=== PATIENT | male | born 1980 | race Caucasian/White ===

== ENCOUNTER 2018-01-05 18:21 | Emergency (ER) | payer BC, OTHER ==
[~2018-01-05] VITALS: Ht 185.4 cm; Wt 105.2 kg
[2018-01-05] MEDS ORDERED: ASPIRIN 81 MG TAB.CHEW PO ONE (19:15)
[2018-01-05] MEDS ORDERED: IV NORMAL SALINE 1,000ML 1,000 ML IV ONE (19:15)
--- NOTE | 2018-01-05 19:47 | PHYS DOC ---
Past History Past Medical History: No Pertinent History Past Surgical History: No Surgical History Alcohol Use: None Drug Use: None Adult General Chief Complaint Chief Complaint: CHEST PAIN HPI HPI Mr. Hallman is a 37 yo male who presents to the Emergency Department after having visited his local PCP. Over the weekend he said that he was experiencing some light headedness and was not feeling well. He said that nothing improves/ worsens his symptoms. His then scheduled an appointment at his PCP which they went to today. He was then referred to the ED by the nurse practitioner who saw him at the office for what he describes as his high blood pressure, "irregular ECG and an enlarged heart on chest xray". Upon talking to Mr. Hallman, he said that he is feeling better now than he was over the weekend. For the past 3 days he has been taking his 's lisinopril medication (2 tablets for 40mg total). He says that he will get occasional dizziness when standing up after laying down. He said that he has been on a keto diet for the past month and mentioned that that could possibly have caused him to not get enough fluids/electrolytes in his diet. He also mentioned that he has been without insurance for the past 3 years and was unable to get any medications. Review of Systems Review of Systems Constitutional: Denies fever or chills [] Eyes: Denies change in visual acuity, redness, or eye pain [] HENT: Denies nasal congestion or sore throat [] Respiratory: Endorses cough and occasional shortness of breath [] Cardiovascular: Denies chest pain and palpitations [] GI: Denies abdominal pain, nausea, vomiting, bloody stools or diarrhea [] : Denies dysuria or hematuria [] Musculoskeletal: Denies back pain or joint pain [] Integument: Denies rash or skin lesions [] Neurologic: Complains of occasional dizziness. Denies headache, focal weakness or sensory changes [] Complete systems were reviewed and found to be within normal limits, except as documented in this note. Current Medications Current Medications Current Medications Medications (Trade) Dose Ordered Sig/Thang Start Time Stop Time Status Last Admin Dose Admin Aspirin (Children'S Aspirin) 324 mg 1X ONCE 01/05/18 19:15 01/05/18 19:16 DC Sodium Chloride 1,000 ml @ 1,000 mls/hr 1X ONCE 01/05/18 19:15 01/05/18 20:14 Allergies Allergies Allergies Coded Allergies Type Severity Reaction Last Updated Verified No Known Drug Allergies 01/05/18 No Physical Exam Physical Exam Constitutional: Well developed, well nourished, no acute distress, non-toxic appearance. [] HENT: Normocephalic, atraumatic, oropharynx moist, no oral exudates, nose normal. [] Eyes: PERRL, EOMI. [] Neck: Normal range of motion, no tenderness, supple, no stridor. [] Cardiovascular:Heart rate regular rhythm, no murmur [] Lungs & Thorax: Bilateral breath sounds clear to auscultation. Chest tender upon palpation [] Abdomen: Bowel sounds normal, soft, no tenderness, no masses, no pulsatile masses. [] Skin: Warm, dry, no erythema, no rash. [] Back: No tenderness, no CVA tenderness. [] Extremities: No tenderness, no cyanosis, no clubbing, ROM intact, no edema. [] Neurologic: Alert and oriented X 3, normal motor function, normal sensory function, no focal deficits noted. [] Psychologic: Affect normal, judgement normal, mood normal. [] Current Patient Data Vital Signs Vital Signs Date Time Temp Pulse Resp B/P (MAP) Pulse Ox O2 Delivery O2 Flow Rate FiO2 01/05/18 18:33 98.4 102 16 98 Room Air EKG EKG 01/05/2018 1830 Sinus tachycardia at 106bpm, nonspecific t wave inversions in V5-V6, NO ST elevation Radiology/Procedures Radiology/Procedures PROCEDURE: CHEST PA & LATERAL PA and lateral chest radiograph. History: Hypertension, chest pain. Comparison: None. Findings: Cardiac silhouette is mildly enlarged. No pneumothorax or pleural effusion is seen. There is slight accentuation of the fissures. Mild density seen involving the right lower lobe. Impression: 1. Mild density involving the right lower lobe, could be atelectasis versus developing airspace disease. 2. Cardiac silhouette is enlarged. There is mild thickening of the fissures; findings might represent mild interstitial edema. Electronically signed by: Michael Jackson MD (01/05/2018 9:06 PM) [facility] Course & Med Decision Making Course & Med Decision Making Pertinent Labs and Imaging studies reviewed. (See chart for details) Mr. Hallman is a 37 yo male who presents to the Emergency Department after having visited his local PCP. Over the weekend he said that he was experiencing some light headedness and was not feeling well. His then scheduled an appointment at his PCP which they went to today. He was then referred to the ED by the nurse practitioner who saw him at the office for what he describes as his high blood pressure, "irregular ECG and an enlarged heart on chest xray". Upon talking to Mr. Hallman, he said that he is feeling better now than he was over the weekend. Chest x-ray and ECG were ordered. ECG showed some sinus tachycardia. Fluids and aspirin were administered to the patient while in the ED. labs obtained and posted to chart. Troponin within normal limits. Creatinine elevated. Creatinine possibly secondary to recent change in diet. Patient advised to increase his fluid consumption. Patient might also have chronic renal insufficiency due to elevated blood pressure. Therefore a rescue blood pressure medication was prescribed. Patient stable for discharge with outpatient follow-up with PCP. Discussed findings and plan with patient and family, who acknowledge understanding and agreement. Dragon Disclaimer Dragon Disclaimer This electronic medical record was generated, in whole or in part, using a voice recognition dictation system. Departure Departure: Impression: Primary Impression: Hypertension Disposition: 01 HOME, SELF-CARE Referrals: FABRIZIO BEAR MD (PCP) Patient Instructions: Hypertension, [id number] Scripts Clonidine Hcl (CLONIDINE HCL) 0.1 Mg Tablet 1 TAB PO BID PRN for SEE COMMENTS, #14 TAB 0 Refills Prov: MICHAEL ALTAMIRANO DO 01/05/18 Problem Qualifiers Primary Impression: Hypertension Hypertension type: unspecified Qualified Codes: I10 - Essential (primary) hypertension MICHAEL ALTAMIRANO DO Jan 05, 2018 19:47
[2018-01-05 20:02] LABS: BASO # 0.2 x10^3/uL (0.0-0.2); BASO % 2 % (0-3); EOS # 0.6 x10^3/uL (0.0-0.7); EOS % 5 % (0-3); HEMATOCRIT 40.4 % (39.0-53.0); HEMOGLOBIN 13.3 g/dL (13.0-17.5); LYMPH % 15 % (24-48); MEAN CORPUSCULAR HEMOGLOBIN 25 pg (25-35); MEAN CORPUSCULAR HGB CONC 33 g/dL (31-37); MEAN CORPUSCULAR VOLUME 76 fL (79-100); MONO # 0.8 x10^3/uL (0.0-1.1); MONO % 6 % (0-9); NEUT # 9.2 x10^3uL (1.8-7.7); NEUT % 72 % (31-73); PLATELET COUNT 270 x10^3/uL (140-400); RED BLOOD COUNT 5.29 x10^6/uL (4.30-5.70); RED CELL DISTRIBUTION WIDTH 15.2 % (11.5-14.5); WHITE BLOOD COUNT 12.9 x10^3/uL (4.0-11.0)
[2018-01-05 20:27] LABS: ALBUMIN 3.3 g/dL (3.4-5.0); CALCIUM 8.7 mg/dL (8.5-10.1); CREATININE 1.5 mg/dL (0.7-1.3); GFR 53.3; MAGNESIUM 1.9 mg/dL (1.8-2.4); POTASSIUM 4.1 mmol/L (3.5-5.1); TOTAL BILIRUBIN 0.7 mg/dL (0.2-1.0); TOTAL PROTEIN 6.7 g/dL (6.4-8.2)
[2018-01-05] MEDS ORDERED: CLON0.1T PO (21:02)
[2018-01-05 21:10] VITALS: BP 152/115
--- NOTE | 2018-01-05 21:10 | RAD ---
PA and lateral chest radiograph. History: Hypertension, chest pain. Comparison: None. Findings: Cardiac silhouette is mildly enlarged. No pneumothorax or pleural effusion is seen. There is slight accentuation of the fissures. Mild density seen involving the right lower lobe. Impression: 1. Mild density involving the right lower lobe, could be atelectasis versus developing airspace disease. 2. Cardiac silhouette is enlarged. There is mild thickening of the fissures; findings might represent mild interstitial edema. Electronically signed by: Michael Jackson MD (01/05/2018 9:06 PM) [facility]
--- NOTE | 2018-01-06 06:27 | EKG ---
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
== END 2018-01-05 21:11 | disposition home or self-care (01) ==
LOC: ER 18:21
DX: I10 Essential (primary) hypertension (principal)
CPT/HCPCS: 36415; 71046; 80053; 82553; 83735; 84484; 85025; 93005; 96360; 99285-25; J7030

== ENCOUNTER 2018-05-12 11:23 | Emergency (ER) | payer BC ==
[~2018-05-12] VITALS: Ht 185.4 cm; Wt 110.7 kg
[~2018-05-12 11:23] MED LIST: CLON0.1T PO
[2018-05-12 11:54] LABS: BASO # 0.1 x10^3/uL (0.0-0.2); BASO % 1 % (0-3); EOS # 0.6 x10^3/uL (0.0-0.7); EOS % 3 % (0-3); HEMATOCRIT 41.1 % (39.0-53.0); LYMPH % 12 % (24-48); MEAN CORPUSCULAR HEMOGLOBIN 28 pg (25-35); MEAN CORPUSCULAR HGB CONC 34 g/dL (31-37); MEAN CORPUSCULAR VOLUME 83 fL (79-100); MONO # 1.6 x10^3/uL (0.0-1.1); MONO % 9 % (0-9); NEUT % 75 % (31-73); PLATELET COUNT 404 x10^3/uL (140-400); RED BLOOD COUNT 4.95 x10^6/uL (4.30-5.70); RED CELL DISTRIBUTION WIDTH 16.3 % (11.5-14.5); WHITE BLOOD COUNT 17.3 x10^3/uL (4.0-11.0)
[2018-05-12 12:15] LABS: ALBUMIN 3.4 g/dL (3.4-5.0); ALBUMIN/GLOBULIN RATIO 0.8 (1.0-1.7); CALCIUM 8.9 mg/dL (8.5-10.1); CREATININE 1.3 mg/dL (0.7-1.3); GFR 62.8; MAGNESIUM 2.2 mg/dL (1.8-2.4); POTASSIUM 4.2 mmol/L (3.5-5.1); TOTAL BILIRUBIN 0.4 mg/dL (0.2-1.0); TOTAL PROTEIN 7.9 g/dL (6.4-8.2)
[2018-05-12 12:17] LABS: % LYMPHS 14 % (24-48); % MONOS 7 % (0-10); % SEGS 76 % (35-66)
[2018-05-12 12:18] LABS: % EOS 3 % (0-5)
--- NOTE | 2018-05-12 12:19 | RAD ---
EXAM: Chest, single view. HISTORY: Chest pain. COMPARISON: 01/05/2018 FINDINGS: A frontal view the chest obtained. There is no infiltrate, pleural effusion or pneumothorax. There is increased opacity within the lateral right mid thorax due to overlying osseous shadows. The heart is normal in size. IMPRESSION: No acute pulmonary finding. Electronically signed by: Neva Vyas MD (05/12/2018 12:15 PM) [id number]
[2018-05-12 12:33] LABS: PLT ESTIMATE INCREASED (ADEQUATE)
[2018-05-12 12:34] LABS: POLYCHROMASIA SLIGHT
[2018-05-12] MEDS ORDERED: IOHEXOL 300 MG/ML 75 ML VIAL. IV ONE (13:00)
[2018-05-12] MEDS ORDERED: CONTRAST GIVEN MC PRN (13:00)
--- NOTE | 2018-05-12 13:28 | RAD ---
Examination: CT angiography chest HISTORY: History of shortness of breath, recent mitral valve replacement COMPARISON: None available Technique: Axial CT angiographic images of chest were performed with IV contrast. Coronal and sagittal 3-D MIP reformats are performed Exposure: One or more of the following individualized dose reduction techniques were utilized for this examination: 1. Automated exposure control 2. Adjustment of the mA and/or kV according to patient size 3. Use of iterative reconstruction technique FINDINGS: The visualized thyroid gland grossly appears unremarkable. Central airways are patent. The caliber of the aorta grossly appears unremarkable No evidence of pericardial effusion There is no evidence of filling defect identified in the main pulmonary arterial trunk and right and left main pulmonary arteries and the visualized lobar, segmental branches of the pulmonary arteries There is a 2 cm soft tissue density identified in the right hilum probably hilar lymphadenopathy. Mild coronary artery calcifications identified. There are patchy bibasilar lung airspace opacities with small right lung base consolidation likely pneumonia or atelectasis. Trace right pleural effusion is identified. There is mild thickened appearance of the right upper lobe lateral pleura. The visualized liver, spleen, adrenals grossly appears unremarkable Mild degenerative changes thoracic spine. IMPRESSION: 1. No evidence of pulmonary embolism. 2. Patchy bibasilar lung airspace opacities with focal consolidation identified in the right lower lobe of the lung likely pneumonia or atelectasis. Follow-up to resolution. Mild right hilar lymphadenopathy, could be reactive. 3. Mild thickened appearance of the right upper lobe lateral pleura, nonspecific. Follow-up examination is recommended to document stability. Electronically signed by: Loki Mckay MD (05/12/2018 1:25 PM) [id number]
[2018-05-12] MEDS ORDERED: IV NORMAL SALINE 50ML 50 ML ONE (13:39)
[2018-05-12] MEDS ORDERED: cefTRIAXone SODIUM 1 GM VIAL IV ONE (13:39)
--- NOTE | 2018-05-12 14:16 | EKG ---
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
[2018-05-12] MEDS ORDERED: AZIT250T PO (14:55)
--- NOTE | 2018-05-12 14:55 | PHYS DOC ---
Past History Past Medical History: Other Past Surgical History: Other Additional Smoking Information: QUIT JANUARY 2018 Alcohol Use: None Drug Use: None Adult General Chief Complaint Chief Complaint: CHEST WALL PAIN HPI HPI Patient is a 37 year old male who presents with complaining of sudden onset of chest pain in right side and shortness of breath. Patient had mitral valve robotic surgery at [facility] on 05/04 and discharged home 5 days ago. Patient states he had induced collapsed lung for robotic procedure. Patient complaining of sudden onset of right-sided chest pain as a sharp pain with shortness of breath that started about 2 hours ago and rated his pain 10 over 10 without fever and chills, vomiting and nausea, new cough. Patient called his heart surgeon who recommended to go to the closest emergency room. Review of Systems Review of Systems Constitutional: Denies fever or chills [] Eyes: Denies change in visual acuity, redness, or eye pain [] HENT: Denies nasal congestion or sore throat [] Respiratory: Reports cough and shortness of breath] Cardiovascular: No additional information not addressed in HPI [] GI: Denies abdominal pain, nausea, vomiting, bloody stools or diarrhea [] : Denies dysuria or hematuria [] Musculoskeletal: Denies back pain or joint pain [] Integument: Denies rash or skin lesions [] Neurologic: Denies headache, focal weakness or sensory changes [] Endocrine: Denies polyuria or polydipsia [] All other systems were reviewed and found to be within normal limits, except as documented in this note. Current Medications Current Medications Current Medications Medications (Trade) Dose Ordered Sig/Thang Start Time Stop Time Status Last Admin Dose Admin Ceftriaxone Sodium 1 gm/ Sodium Chloride 50 ml @ 100 mls/hr 1X ONCE 05/12/18 14:00 05/12/18 14:29 DC 05/12/18 13:48 100 MLS/HR Ceftriaxone Sodium (Rocephin) 1 gm STK-MED ONCE 05/12/18 13:39 05/12/18 13:40 DC Fentanyl Citrate (Fentanyl 2ml Vial) 50 mcg 1X ONCE 05/12/18 13:30 05/12/18 13:31 DC 05/12/18 13:46 50 MCG Info (Do NOT chart on this entry -- for MONITORING) 1 each PRN DAILY PRN 05/12/18 13:00 05/14/18 12:59 Iohexol (Omnipaque 300 Mg/ml) 75 ml 1X ONCE 05/12/18 13:00 05/12/18 13:01 DC 05/12/18 13:03 75 ML Sodium Chloride 50 ml @ As Directed STK-MED ONCE 05/12/18 13:39 05/12/18 13:40 DC Allergies Allergies Allergies Coded Allergies Type Severity Reaction Last Updated Verified No Known Drug Allergies 01/05/18 No Physical Exam Physical Exam Constitutional: Well developed, well nourished, moderate distress, non-toxic appearance. [] HENT: Normocephalic, atraumatic, oropharynx moist, no oral exudates, nose normal. [] Eyes: PERRLA, EOMI, conjunctiva normal, no discharge. [] Neck: Normal range of motion, no tenderness, supple, no stridor. [] Cardiovascular: Tachycardia, no murmur [] Lungs & Thorax: Right side chest wall tenderness, clean surgical wound, mild decrease of air movement in right base Abdomen: Bowel sounds normal, soft, no tenderness, no masses, no pulsatile masses. [] Skin: Warm, dry, no erythema, no rash. [] Back: No tenderness, no CVA tenderness. [] Extremities: No tenderness, no cyanosis, no clubbing, ROM intact, no edema. [] Neurologic: Alert and oriented X 3, normal motor function, normal sensory function, no focal deficits noted. [] Psychologic: Affect anxious, judgement normal, mood normal. [] Current Patient Data Vital Signs Vital Signs Date Time Temp Pulse Resp B/P (MAP) Pulse Ox O2 Delivery O2 Flow Rate FiO2 05/12/18 13:49 72 24 109/59 (76) 98 Nasal Cannula 2.0 05/12/18 11:25 98.1 Lab Results Laboratory Tests Test 05/12/18 11:40 05/12/18 13:48 White Blood Count 17.3 x10^3/uL (4.0-11.0) H Red Blood Count 4.95 x10^6/uL (4.30-5.70) Hemoglobin 14.0 g/dL (13.0-17.5) Hematocrit 41.1 % (39.0-53.0) Mean Corpuscular Volume 83 fL (79-100) Mean Corpuscular Hemoglobin 28 pg (25-35) Mean Corpuscular Hemoglobin Concent 34 g/dL (31-37) Red Cell Distribution Width 16.3 % (11.5-14.5) H Platelet Count 404 x10^3/uL (140-400) H Neutrophils (%) (Auto) 75 % (31-73) H Lymphocytes (%) (Auto) 12 % (24-48) L Monocytes (%) (Auto) 9 % (0-9) Eosinophils (%) (Auto) 3 % (0-3) Basophils (%) (Auto) 1 % (0-3) Neutrophils # (Auto) 13.0 x10^3uL (1.8-7.7) H Lymphocytes # (Auto) 2.0 x10^3/uL (1.0-4.8) Monocytes # (Auto) 1.6 x10^3/uL (0.0-1.1) H Eosinophils # (Auto) 0.6 x10^3/uL (0.0-0.7) Basophils # (Auto) 0.1 x10^3/uL (0.0-0.2) Segmented Neutrophils % 76 % (35-66) H Lymphocytes % 14 % (24-48) L Monocytes % 7 % (0-10) Eosinophils % 3 % (0-5) Basophils % % (0-3) Platelet Estimate Increased (ADEQUATE) Large Platelets Occ Polychromasia Slight Prothrombin Time 9.7 SEC (9.4-11.4) Prothrombin Time INR 1.0 (0.9-1.1) PTT 31 SEC (23-33) D-Dimer (Vida) 4.27 mg/L (0.00-0.50) H Sodium Level 133 mmol/L (136-145) L Potassium Level 4.2 mmol/L (3.5-5.1) Chloride Level 99 mmol/L (98-107) Carbon Dioxide Level 27 mmol/L (21-32) Anion Gap 7 (6-14) Blood Urea Nitrogen 18 mg/dL (8-26) Creatinine 1.3 mg/dL (0.7-1.3) Estimated GFR (Cockcroft-Gault) 62.8 BUN/Creatinine Ratio 14 (6-20) Glucose Level 92 mg/dL (70-99) Lactic Acid Level 1.7 mmol/L (0.4-2.0) Calcium Level 8.9 mg/dL (8.5-10.1) Magnesium Level 2.2 mg/dL (1.8-2.4) Total Bilirubin 0.4 mg/dL (0.2-1.0) Aspartate Amino Transferase (AST) 28 U/L (15-37) Alanine Aminotransferase (ALT) 32 U/L (16-63) Alkaline Phosphatase 93 U/L (46-116) Creatine Kinase 68 U/L (39-308) MB-Umj-B-Type Natriuretic Peptide 332 pg/mL (0-124) H Total Protein 7.9 g/dL (6.4-8.2) Albumin 3.4 g/dL (3.4-5.0) Albumin/Globulin Ratio 0.8 (1.0-1.7) L POC Troponin I < 0.08 ng/ml (<0.08) EKG EKG EKG interpreted by me. EKG at 1128 showed sinus rhythm at rate of 72, prolonged [place] interval, poor R-wave progress in anteroseptal leads, T-wave abnormalities in high lateral leads no acute ST and T wave abnormality Radiology/Procedures Radiology/Procedures [] Course & Med Decision Making Course & Med Decision Making Pertinent Labs and Imaging studies reviewed. (See chart for details) Evaluation of patient in ER showed 37-year-old male patient with history of recent about take mitral valve surgery and complaining of sudden onset of chest pain and shortness of breath. X-ray did not show pneumothorax and patient had elevation of d-dimer and CT of chest showed possible pneumonia. Patient had elevation of white count without elevation of lactic acid and treated with Rocephin in ER. Patient heart surgeon at [facility] Dr. Aguilar was contacted via transfer line and recommended to obtain echo for rule out cardiac tamponade. Because of unavailable echo here decided to obtain outpatient echo for patient tomorrow and see patient on Wednesday at 11:30. Patient informed about plan of care and is to follow-up with his physician. Dragon Disclaimer Dragon Disclaimer This electronic medical record was generated, in whole or in part, using a voice recognition dictation system. Critical Care Time Critical care time was 100 minutes exclusive of procedures. Departure Departure: Impression: Primary Impression: HCAP (healthcare-associated pneumonia) Additional Impressions: Right-sided chest pain Post-op pain Disposition: HOME, SELF-CARE (at 1453) Condition: IMPROVED Referrals: FABRIZIO BEAR MD (PCP) Patient Instructions: Pneumonia, Adult Additional Instructions: Continue home medication Follow-up with your appointment with your condenser operator on May 16 at 11:30 Return to ER if not getting better Scripts Azithromycin (ZITHROMAX) 250 Mg Tablet 1 PKG PO UD for infection, #1 PKG Prov: AGUSTIN DUVAL MD 05/12/18 Problem Qualifiers AGUSTIN DUVAL MD May 12, 2018 14:55
[2018-05-12 15:00] VITALS: BP 111/85
== END 2018-05-12 15:07 | disposition home or self-care (01) ==
LOC: ER 11:23
DX: J18.9 Pneumonia, unspecified organism (principal); G89.18 Other acute postprocedural pain; Z87.891 Personal history of nicotine dependence; Z98.890 Other specified postprocedural states; Y95 Nosocomial condition
CPT/HCPCS: 36415; 71045; 71275; 80053; 82550; 83605; 83735; 83880; 84484; 85007; 85025; 85379; 85610; 85730; 87040; 93005; 96365; 96375; 96376; 99284; J0696; J3010; Q9967

== ENCOUNTER 2019-04-01 18:53 | Inpatient (IN) | payer BC ==
[~2019-04-01] VITALS: Ht 185.4 cm; Wt 120.2 kg
[~2019-04-01 18:53] MED LIST changes: +AZIT250T PO
--- NOTE | 2019-04-01 19:11 | PHYS DOC ---
Past History Past Medical History: High Cholesterol, Hypertension, Other Past Surgical History: Other Additional Past Surgical Histo: mitral valve repair Smoking: Cigarettes Alcohol Use: None Drug Use: None Adult General Chief Complaint Chief Complaint: CHEST PAIN HPI HPI Patient is a 38-year-old male presents complaining of chest discomfort that started approximately 2 hours prior to arrival. Slightly worse with deep breaths. Worse with recumbent position. It has become worse over time going across his lower chest and into his back. Patient took his blood pressure during this and noted that was very high. He denies any PE risk factors. Denies any cough or fever. No significant worsening with exertion. No nausea or vomiting. No trauma. Pain is moderate to severe.[] Review of Systems Review of Systems Constitutional: Denies fever or chills [] Eyes: Denies change in visual acuity, redness, or eye pain [] HENT: Denies nasal congestion or sore throat [] Respiratory: Denies cough or shortness of breath [] Cardiovascular: No additional information not addressed in HPI [] GI: Denies abdominal pain, nausea, vomiting, bloody stools or diarrhea [] : Denies dysuria or hematuria [] Musculoskeletal: Denies back pain or joint pain [] Integument: Denies rash or skin lesions [] Neurologic: Denies headache, focal weakness or sensory changes [] Endocrine: Denies polyuria or polydipsia [] All other systems were reviewed and found to be within normal limits, except as documented in this note. Allergies Allergies Allergies Coded Allergies Type Severity Reaction Last Updated Verified No Known Drug Allergies 04/01/19 No Physical Exam Physical Exam Constitutional: Well developed, well nourished, no acute distress, non-toxic appearance. [] HENT: Normocephalic, atraumatic, bilateral external ears normal, oropharynx moist, no oral exudates, nose normal. [] Eyes: PERRLA, EOMI, conjunctiva normal, no discharge. [] Neck: Normal range of motion, no tenderness, supple, no stridor. [] Cardiovascular:Heart rate regular rhythm, no murmur [] Lungs & Thorax: Bilateral breath sounds clear to auscultation [] Abdomen: Bowel sounds normal, soft, no tenderness, no masses, no pulsatile masses. [] Skin: Warm, dry, no erythema, no rash. [] Back: No tenderness, no CVA tenderness. [] Extremities: No tenderness, no cyanosis, no clubbing, ROM intact, no edema. [] Neurologic: Alert and oriented X 3, normal motor function, normal sensory function, no focal deficits noted. [] Psychologic: Affect normal, judgement normal, mood normal. [] EKG EKG EKG shows a sinus rhythm at 85 bpm, left axis, QTC 4-31 ms, no ST elevation. No old EKG available for comparison. Interpreted by me at 1905[] Radiology/Procedures Radiology/Procedures Chest x-ray shows no infiltrate, no effusion, no pneumothorax, no acute changes when compared with chest x-ray of 05/12/2018.[] Course & Med Decision Making Course & Med Decision Making Pertinent Labs and Imaging studies reviewed. (See chart for details) ED course: Patient arrived, was placed in bed, and tolerated exam well. He was given aspirin as well as morphine. This improved his chest discomfort. His pressure continued to be high so he was given clonidine. After the return of laboratory and imaging studies, these were discussed with patient and family voiced understanding. Consultation was made with his primary care physician who graciously accepted him for admission. Patient was admitted in improved condition with all questions answered. Medical decision making: Patient with chest discomfort, he scores points on the heart score for moderately suspicious history, nonspecific repolarization disturbance, and 1-2 risk factors. While this is only a 3 which makes it low likelihood, having had previous valve surgery, he elected to admit the patient for further evaluation, especially in light of his elevated blood pressure and worsening renal function.[] Dragon Disclaimer Dragon Disclaimer This electronic medical record was generated, in whole or in part, using a voice recognition dictation system. Departure Departure: Impression: Primary Impression: Chest pain Additional Impression: Hypertension Disposition: ADMITTED INPATIENT Admitting Physician: Jimmy Arriaga Condition: IMPROVED Referrals: JIMMY ARRIAGA MD (PCP) Problem Qualifiers Primary Impression: Chest pain Chest pain type: unspecified Qualified Codes: R07.9 - Chest pain, unspecified Additional Impression: Hypertension Hypertension type: unspecified Qualified Codes: I10 - Essential (primary) hypertension PADMA DAMON Apr 01, 2019 19:11
[2019-04-01] MEDS ORDERED: MORPHINE SULFATE 4 MG/ML DISP.SYRIN. IV/SQ PRN (19:15)
[2019-04-01] MEDS ORDERED: ASPIRIN 81 MG TAB.CHEW PO ONE (19:15)
[2019-04-01 19:27] LABS: BASO # 0.2 x10^3/uL (0.0-0.2); BASO % 1 % (0-3); EOS # 0.6 x10^3/uL (0.0-0.7); EOS % 4 % (0-3); HEMATOCRIT 49.7 % (39.0-53.0); HEMOGLOBIN 17.2 g/dL (13.0-17.5); LYMPH # 2.4 x10^3/uL (1.0-4.8); LYMPH % 15 % (24-48); MEAN CORPUSCULAR HEMOGLOBIN 30 pg (25-35); MEAN CORPUSCULAR HGB CONC 35 g/dL (31-37); MEAN CORPUSCULAR VOLUME 85 fL (79-100); MONO % 6 % (0-9); NEUT # 12.1 x10^3uL (1.8-7.7); NEUT % 74 % (31-73); PLATELET COUNT 234 x10^3/uL (140-400); RED BLOOD COUNT 5.82 x10^6/uL (4.30-5.70); RED CELL DISTRIBUTION WIDTH 14.9 % (11.5-14.5); WHITE BLOOD COUNT 16.2 x10^3/uL (4.0-11.0)
[2019-04-01 19:43] LABS: ALBUMIN 3.9 g/dL (3.4-5.0); ALBUMIN/GLOBULIN RATIO 1.1 (1.0-1.7); CALCIUM 8.8 mg/dL (8.5-10.1); CREATININE 1.4 mg/dL (0.7-1.3); GFR 57.3; POTASSIUM 3.8 mmol/L (3.5-5.1); TOTAL BILIRUBIN 0.4 mg/dL (0.2-1.0); TOTAL PROTEIN 7.5 g/dL (6.4-8.2)
[2019-04-01] MEDS ORDERED: NITROGLYCERIN SUBLINGUAL 0.4 MG BOTTLE OF 25. SL PRN (20:15)
[2019-04-01] MEDS ORDERED: MORPHINE SULFATE 4 MG/ML DISP.SYRIN. IV PRN (20:15)
[2019-04-01] MEDS ORDERED: cloNIDine HCL 0.1 MG TABLET PO ONE (20:15)
[2019-04-01] MEDS ORDERED: ONDANSETRON PF 4 MG/2 ML VIAL. IV PRN (20:15)
--- NOTE | 2019-04-01 20:37 | RAD ---
Exam performed: One view chest. Indication: Chest pain, history of smoking Date of Service: 04/01/2019 7:29 PM Comparison: One view chest from 05/12/2018. Single AP upright portable view chest findings: Cardiomediastinal silhouette is within limits of normal. No acute infiltrates, effusion or pneumothorax is detected. The bony structures are normal. Impression: No acute cardiopulmonary process is detected. Electronically signed by: Jenny Cooper MD (04/01/2019 8:35 PM) [facility]
[2019-04-01 21:01] LABS: BARBITURATES NEG (NEG); BENZODIAZEPINES NEG (NEG); CANNABINOIDS NEG (NEG); COCAINE NEG (NEG); METHADONE NEG (NEG); OPIATES POS (NEG); PHENCYCLIDINE NEG (NEG)
[2019-04-01 21:03] LABS: AMPHETAMINE/METHAMPHETAMINE NEG (NEG)
[2019-04-01 21:06] LABS: BACTERIA,URINE 0 /HPF (0-FEW); BILIRUBIN,URINE NEG (NEG); CLARITY,URINE CLEAR; COLOR,URINE YELLOW; GLUCOSE,URINE NEG (NEG); NITRITE,URINE NEG (NEG); RBC,URINE 0 /HPF (0-2); SQUAMOUS EPITHELIAL CELL,UR OCC /LPF; UROBILINOGEN,URINE 0.2 mg/dL (0.2 mg/dL); WBC,URINE 0 /HPF (0-4)
[2019-04-01 21:45] VITALS: BP 119/69
--- NOTE | 2019-04-01 21:45 | NUR ---
The patient, SOMMER DALEY, 38 y/o, M admitted by FABRIZIO BEAR MD, was given written information regarding hospital policies, unit procedures and contact persons. Patient admitted with Chest pain, HTN. Patient alert and oriented x 4. Patient oriented to room, bed, call light and plan of care. Patient denies any c/o chest pain at this time. Vitals temp. 97.8, B/P 119/69, pulse 79, RR 18, O2 saturation 95% on room air. Valuables were checked and Patient has wallet at bedside but declines lock up of valuables with security. .
[2019-04-01 22:23] LABS: % ATYL 6 % (0-0); % EOS 2 % (0-5); % LYMPHS 14 % (24-48); % MONOS 5 % (0-10); % SEGS 73 % (35-66); PLT ESTIMATE ADEQUATE (ADEQUATE)
--- NOTE | 2019-04-01 22:37 | EKG ---
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
[2019-04-01] MEDS ORDERED: ATOR10TA60 PO (23:01)
[2019-04-01] MEDS ORDERED: CARV12.53 PO (23:01)
[2019-04-01 23:11] VITALS: BP 117/67
[2019-04-02] VITALS (7 sets, daily range): BP systolic 126–161; BP diastolic 75–103
--- NOTE | 2019-04-02 06:00 | NUR ---
Patient has rested this shift without any further c/o CP. Vitals have been stable. Call light remains in reach.
--- NOTE | 2019-04-02 06:32 | NUR ---
Consult called into Dr. Hernandez's service regarding consult for HTN, CP and H/O mitral valve repair. Message left with Irma at [phone]. Irma stated he would send consult to Dr. Hernandez.
[2019-04-02] MEDS ORDERED: FLU VAX QS 2019-20 (36MOS+)/PF 0.5 ML SYRINGE. VAX IM ONE (09:00)
[2019-04-02 10:58] LABS: BASO # 0.1 x10^3/uL (0.0-0.2); BASO % 1 % (0-3); EOS # 0.5 x10^3/uL (0.0-0.7); EOS % 4 % (0-3); HEMATOCRIT 46.8 % (39.0-53.0); LYMPH # 1.8 x10^3/uL (1.0-4.8); LYMPH % 14 % (24-48); MEAN CORPUSCULAR HEMOGLOBIN 30 pg (25-35); MEAN CORPUSCULAR HGB CONC 34 g/dL (31-37); MEAN CORPUSCULAR VOLUME 86 fL (79-100); MONO # 0.9 x10^3/uL (0.0-1.1); MONO % 7 % (0-9); NEUT # 9.9 x10^3uL (1.8-7.7); NEUT % 75 % (31-73); PLATELET COUNT 183 x10^3/uL (140-400); RED BLOOD COUNT 5.43 x10^6/uL (4.30-5.70); WHITE BLOOD COUNT 13.2 x10^3/uL (4.0-11.0)
[2019-04-02 11:06] LABS: ALBUMIN 3.4 g/dL (3.4-5.0); CALCIUM 8.8 mg/dL (8.5-10.1); CREATININE 1.2 mg/dL (0.7-1.3); GFR 68.5; PHOSPHORUS 3.3 mg/dL (2.6-4.7)
[2019-04-02] MEDS ORDERED: CONTRAST GIVEN MC PRN (11:30)
[2019-04-02] MEDS ORDERED: IOHEXOL 350 MG/ML 100 ML VIAL. IV ONE (11:30)
--- NOTE | 2019-04-02 11:44 | HP ---
ADMIT DATE: 04/01/2019 HISTORY OF PRESENT ILLNESS: A 38-year-old gentleman came in through the Emergency Room, apparently was walking to his car when he experienced severe chest discomfort, primarily just above the epigastric area. The patient noticed it got worse with deep breaths, worse with recumbent position, became worse over time, going across his chest, into his back. The patient took his blood pressure during this and noted it was over 200 systolic. He denied any previous history of coronary artery disease. He does smoke. He does not have any significant family history. He also has a history of hypercholesterolemia. The patient was admitted for hypertensive urgency as well as chest pain and decreased renal function. PAST MEDICAL HISTORY: Mitral valve prolapse, mitral valve surgery robotic, oral surgery, all teeth pulled prior to mitral valve surgery, history of hypercholesterolemia, hypertension. SOCIAL HISTORY: The patient smokes, about 14-15 pack year history of smoking. FAMILY HISTORY: His mother has diabetes. Father unknown. ALLERGIES: No known allergies. MEDICATIONS: Include Lipitor 10 mg daily and carvedilol 12.5 mg p.o. b.i.d. REVIEW OF SYSTEMS: Denies headaches, vision change, blurred vision, double vision. Denies nausea, vomiting, problems with any extremity. Denies any problem with bowels or bladder. The patient as far as he knows he did not have any particular elevated problems with his kidney function until now. He did have mitral valve surgery as noted above. PHYSICAL EXAMINATION: GENERAL: This is a pleasant white male. VITAL SIGNS: Blood pressure initially coming through the Emergency Room to be noted was approximately 210/130, respiratory rate 20, pulse approximately 90. He was afebrile. The patient's oxygen saturation went from 94-97%. HEENT: The patient's head was atraumatic, normocephalic. Eyes: PERRLA without jaundice. The mouth and throat were normal. NECK: Supple. No JVD or thyromegaly. LUNGS: Diminished throughout, but clear. CARDIOVASCULAR: Regular sinus rhythm, heart valve sound otherwise. ABDOMEN: Soft, nontender. No rebound or guarding. Positive bowel sounds. No hepatosplenomegaly was noted. EXTREMITIES: No clubbing, cyanosis, nor edema. NEUROLOGIC: The patient was alert and oriented x 3. BACK: He did have a sebaceous cyst on his back, approximately 1.5 inches. LABORATORY DATA: The white count was 16,000, platelets 234, hemoglobin and hematocrit 17 and 49. Sodium and potassium 137 and 3.8, BUN and creatinine 13 and 1.4 with GFR of 57, glucose 100, alkaline phosphatase 132. BNP of 409. TSH was normal. Lipase was normal. IMPRESSION: Chest pain, rule out myocardial infarction, history of mitral valve prolapse and replacement, apparently mild renal insufficiency, leukocytosis, unknown etiology. PLAN: The patient will be monitored carefully. Rule out [place] protocol. We will get echocardiogram, look at that valve, possible infection, go ahead and have Cardiology review him and make further evaluation on him as indicated. FABRIZIO BEAR MD DR: ARTHUR/kavitha JOB#: [id number] / [id number]
[2019-04-02] MEDS: CARVEDILOL 12.5 MG TABLET PO SCH ×2 (12:47→20:12)
--- NOTE | 2019-04-02 13:45 | RAD ---
Renal ultrasound complete History: Decreased renal function and elevated blood pressure Sonographic examination of the kidneys was performed and multiple static images were obtained. Right kidney: The right kidney is seen with no hydronephrosis and measures 11.6 cm in length. Left kidney: The left kidney is seen with no hydronephrosis and measures 12.8 cm in length. Urinary bladder: The urinary bladder appears normal. Impression: No hydronephrosis. Electronically signed by: Rodney Joyner III, MD (04/02/2019 1:42 PM) [facility]
--- NOTE | 2019-04-02 13:54 | RAD ---
CTA Chest with contrast: Clinical History: Chest pain history of mitral valve replacement. Axial helical images of the chest were obtained after the administration of 90 cc of IV Omni 350 and timed appropriately for a pulmonary arterial study. Conventional axial reconstruction was performed in addition to coronal, sagittal and bilateral oblique MIP (maximum intensity projection). This study was ordered to detect possible pulmonary embolism. COMPARISON: May 12, 2018 There are no filling defects to suggest pulmonary embolism. There are multiple mildly enlarged hilar lymph nodes bilaterally and there are a few small borderline size mediastinal lymph nodes. The lungs and pleural margins are clear. Posteriorly there is a subcutaneous sebaceous cyst which was seen previously. The thoracic aorta appears normal. Impression: 1. No evidence of pulmonary embolism. 2. Mild lymphadenopathy could be reactive. This was seen previously. PQRS Compliance Statement: One or more of the following individualized dose reduction techniques were utilized for this examination: 1. Automated exposure control 2. Adjustment of the mA and/or kV according to patient size 3. Use of iterative reconstruction technique Electronically signed by: Rodney Joyner III, MD (04/02/2019 1:51 PM) [facility]
--- NOTE | 2019-04-02 15:17 | CONS ---
DATE OF CONSULTATION: 04/02/2019 REASON FOR CONSULTATION: Chest pain. HISTORY OF PRESENT ILLNESS: The patient is a 38-year-old man with past medical history as noted below, who presents to the hospital in the setting of epigastric tightness and band-like sensation and initially upon arrival to the hospital was noted to have a systolic blood pressure above 200. After appropriate stabilization in the ER, he has been admitted for further evaluation and treatment. Since admission, he has not had any significant recurrence of chest discomfort. Denies any palpitations, orthopnea, or PND. At home, he has had some elevated blood pressures up in the 180s and 190s. PAST MEDICAL HISTORY: 1. Uncontrolled hypertension with treatment on carvedilol 12.5 mg b.i.d. 2. History of mitral valve repair, likely due to primary mitral regurgitation at in 2018. Last echocardiogram on 06/02/2018 with ejection fraction of 50% and trace regurgitation. 3. History of anxiety. 4. Mild nonobstructive coronary artery disease based on cardiac catheterization in 03/2018. SOCIAL HISTORY: The patient reports smoking approximately 1 pack per day. No alcohol or illicit drug use. FAMILY HISTORY: Noncontributory. REVIEW OF SYSTEMS: Negative unless otherwise mentioned above in HPI. CURRENT CARDIOVASCULAR MEDICATIONS: 1. Carvedilol 12.5 mg p.o. b.i.d. 2. Atorvastatin 10 mg daily. ALLERGIES: No known drug allergies. PHYSICAL EXAMINATION: VITAL SIGNS: Afebrile, 73, 161/103, 93% on room air. GENERAL: He is alert and oriented, no acute distress. HEAD AND NECK: Unremarkable. CARDIAC: Regular rate and rhythm with a soft 3/6 systolic murmur consistent with mitral regurgitation. LUNGS: Clear to auscultation bilaterally. ABDOMEN: Soft, nontender, nondistended. EXTREMITIES: No clubbing, cyanosis or edema. NEUROLOGIC: No focal deficits. MUSCULOSKELETAL: No trauma. VASCULAR: Unremarkable. DIAGNOSTIC STUDIES: Minimal white blood cell count elevation. Creatinine is within normal limits. Cardiac enzymes are negative x 3. EKG demonstrates sinus rhythm with left ventricular hypertrophy. CTA of the chest does not reveal any evidence of pulmonary embolism. IMPRESSION: 1. Chest pain, likely secondary to hypertensive emergency. 2. History of mitral valve repair via a right lateral approach without sternotomy. 3. Uncontrolled hypertension. 4. Residual mitral regurgitation. RECOMMENDATIONS: 1. We will add hydralazine 25 mg p.o. t.i.d. as his blood pressure appears to be labile. He can follow up with his primary signal timer and have further titration of medical therapy. 2. No further cardiovascular testing necessary as he had a cardiac catheterization approximately one year ago, which did not reveal any significant obstructive disease. Thank you for this consultation. DIANA SALEH MD DR: LEONARDO/nts JOB#: [id number] / [id number]
[2019-04-02] MEDS: hydrALAZINE 25 MG TABLET PO SCH ×2 (15:25→20:12)
[2019-04-02] MEDS ORDERED: ATORVASTATIN CALCIUM 10 MG TABLET. PO SCH (21:00)
[2019-04-03 05:58] VITALS: BP 150/105
[2019-04-03] MEDS: hydrALAZINE 25 MG TABLET PO SCH (08:31)
[2019-04-03 08:32] VITALS: BP 150/105
[2019-04-03] MEDS: CARVEDILOL 12.5 MG TABLET PO SCH ×2 (08:32→08:38)
[2019-04-03] MEDS ORDERED: hydroCHLOROthiazide 12.5 MG CAPSULE PO SCH (09:00)
[2019-04-03 09:12] LABS: BASO # 0.1 x10^3/uL (0.0-0.2); BASO % 1 % (0-3); EOS # 0.4 x10^3/uL (0.0-0.7); EOS % 4 % (0-3); HEMATOCRIT 47.1 % (39.0-53.0); LYMPH # 1.3 x10^3/uL (1.0-4.8); LYMPH % 14 % (24-48); MEAN CORPUSCULAR HEMOGLOBIN 30 pg (25-35); MEAN CORPUSCULAR HGB CONC 34 g/dL (31-37); MEAN CORPUSCULAR VOLUME 87 fL (79-100); MONO # 0.5 x10^3/uL (0.0-1.1); MONO % 6 % (0-9); NEUT % 75 % (31-73); PLATELET COUNT 186 x10^3/uL (140-400); RED BLOOD COUNT 5.41 x10^6/uL (4.30-5.70); RED CELL DISTRIBUTION WIDTH 14.9 % (11.5-14.5); WHITE BLOOD COUNT 9.3 x10^3/uL (4.0-11.0)
[2019-04-03 09:20] LABS: CALCIUM 9.1 mg/dL (8.5-10.1); CREATININE 1.3 mg/dL (0.7-1.3); GFR 62.5; POTASSIUM 4.3 mmol/L (3.5-5.1)
[2019-04-03] MEDS ORDERED: CARV25TA2 PO (09:36)
[2019-04-03] MEDS ORDERED: HYDR12.572 PO (09:36)
[2019-04-03] MEDS ORDERED: HYDR-2868 PO (09:36)
--- NOTE | 2019-04-03 10:12 | NUR ---
NURSING NOTE DISCHARGE PT DISCHARGED TO HOME VIA AMBULATION ACCOMPANIED BY SELF TO FRONT TO BE PICKED UP. WRITTEN AND VERBAL DISCHARGE INSTRUCTIONS GIVEN TO PT. SCRIPTS CALLED INTO [employer] AND NOTE GIVEN TO PT FOR WORK. NO COMPLICATIONS. ELHAM CHAVEZ,.
--- NOTE | 2019-04-03 13:05 | DS ---
DATE OF DISCHARGE: HOSPITAL COURSE: A 38-year-old male with a history of mitral valve replacement, robotic came in. He was not feeling very well. He was having chest pain and as a result of this was ruled out [place] protocol, which was ruled out. The patient apparently had significant mitral valve prolapse in the past. In any case, the patient made excellent progress. His cardiac enzymes were negative. His white count initially was 16,000, came down to 9000. The patient's otherwise chemistries were basically all within range. The source of this elevated white count was never fully determined. His echocardiogram performed here in the hospital was still pending as far as a read out goes. In any case, he will be followed up by his [employer] consultant, . ____ and make further evaluation there as indicated. IMPRESSION: Chest pain, history of mitral valve prolapse with replacement, mild renal insufficiency, needs to be worked up further as an outpatient. Renal ultrasound was negative and leukocytosis, probable viral. DISCHARGE INSTRUCTIONS: He will be on a heart healthy diet, decreased activity. Followup with his [employer] consultant. FABRIZIO BEAR MD DR: ARTHUR/kavitha JOB#: [id number] / [id number]
== END 2019-04-03 10:13 | disposition home or self-care (01) | DRG 206 ==
LOC: ER 18:53 → 1 SOUTH 21:40
PROVIDERS: ADMIT Family Medicine; ATTEND Family Medicine
DX: M94.0 Chondrocostal junction syndrome [Tietze] (principal); I16.1 Hypertensive emergency; I34.1 Nonrheumatic mitral (valve) prolapse; D72.829 Elevated white blood cell count, unspecified; I10 Essential (primary) hypertension; I34.0 Nonrheumatic mitral (valve) insufficiency; F17.210 Nicotine dependence, cigarettes, uncomplicated; E78.00 Pure hypercholesterolemia, unspecified; I25.10 Atherosclerotic heart disease of native coronary artery without angina pectoris; F41.9 Anxiety disorder, unspecified; N28.9 Disorder of kidney and ureter, unspecified; Z95.2 Presence of prosthetic heart valve; Z83.3 Family history of diabetes mellitus; Z79.899 Other long term (current) drug therapy
CPT/HCPCS: 36415; 71045; 71275; 76770; 80048; 80053; 80069; 80307; 81001; 83690; 83735; 83880; 84443; 84484; 85007; 85025; 85379; 85610; 85730; 90471; 90686; 93005; 96374; J2270; Q9967; 99285-25